=== PATIENT | female | born 1935 | race Caucasian/White ===

== ENCOUNTER 2018-10-21 13:45 | Outpatient (RCR) | payer MEDICARE, MEDICAID, SELFPAY ==
[2018-09-29 11:06] VITALS: BP 146/56; PULSE 71; RESP 18; TEMP 36.6; BMI 25.4
--- NOTE | 2018-09-29 16:26 | PN.PCM_ITS ---
Type of Wound Chief Complaint: Recurrent venous stasis ulcerations of the left medial leg History of Wound: This is a 79-year-old white female who is having history of ulcerations in the left lower extremity in the past, and is currently under treatment at the [facility] wound center for recurrent ulcerat ion on the distal left medial calf. She is currently under the care of Dr. Michele Vegas. This is her 23THrd week of treatment. Current management includes the use of double layer 15-20 mmHg compression stockings prescribed by Dr. Birmingham last month, and collagen hydrogel which is applied every day topically. She ambulates with a cane. She sleeps on a flat mattress at night. She saw Dr. Birmingham last month for evaluation and he instructed her to lay flat with her legs slightly elevated at least 3 times per day. - Physical Exam Vital Signs Temp Pulse Resp BP 97.8 F 71 18 146/56 H 09/29/18 11:06 09/29/18 11:06 09/29/18 11:06 09/29/18 11:06 Wound Measurements and Assessment WC - Nurse 1 - General Ulcer Measurement Start: 09/29/18 11:06 Freq: Status: Active Protocol: Activity Type Activity Date Activity User E-Sign Co-Sign Detail Recorded Client Recorded Date Recorded By Document 09/29/18 11:06 AN [id number] 09/29/18 11:35 AN 09/29/18 11:06 Wound Center Nurse 1 [Ulcer Assessment] #3 RIGHT LOWER LEG CLUSTER -Current Size (cm) - Length 1.7 -Current Size (cm) - Width 1.8 -Current Size (cm) - Depth 0.1 -Total Square Cm 3.06 -Date of Last Picture (Recall this 09/29/18 field) -Photo Taken Yes -Classification - Thickness Full Thickness without Exposed Support Structure -Exudate Amt Medium -Exudate Type Serosanguineous -Wound Margin Distinct, Outline Attached -Granulation Amt Small (1-33%) -Granulation Quality Red -Necrosis Amt Large (67-100%) -Necrotic Tissue Type Adherent Slough -Structure Exposed None/Limited to Skin Breakdown -Texture (Kristen-wound Skin Appearance) Assessed -Moisture (Kristen-wound Skin Appearance Assessed ) -Color (Kristen-wound Skin Appearance) Assessed Erythema -Temperature (Kristen-wound Skin Hot Appearance) -Tenderness on Palpation (Kristen-wound Yes Skin Appearance) -Ulcer Cleansing Rinsed/ Irrigated with Saline -Foul Odor after Cleansing No -Anesthetic Used 4% Lidocaine Solution 5% Lidocaine Gel [Edema Assessment] -Right Calf (cm) 35.6 -Right Ankle (cm) 19.5 -Left Calf (cm) 35.5 -Left Ankle (cm) 20.0 CLINT - Nurse 2 - General Ulcer CM Notes Start: 09/29/18 11:06 Freq: Status: Active Protocol: Activity Type Activity Date Activity User E-Sign Co-Sign Detail Recorded Client Recorded Date Recorded By Document 09/29/18 12:23 [id number] 09/29/18 12:30 09/29/18 12:23 Wound Center Nurse 2 [Procedure/Treatment] #3 RIGHT LOWER LEG CLUSTER -Time 12:27 -Correct Patient Yes -Correct Side, Site, Position Yes -Correct Procedure Yes -Procedure Performed Yes -Type of Procedure Debridement -Clinical Debridement Subcutaneous -Post Debridement Size (cm) - Length 2 -Post Debridement Size (cm) - Width 2 -Post Debridement Size (cm) - Depth 0.4 -Total Square Cm 4 -Wound/Ulcer Outcome Not Healed -Ulcer Cleansing Rinsed/ Irrigated with Saline -Foul Odor after Cleansing No -Bioengineered Tissue No -Bleeding Controlled with Pressure -Offloading No -Treatment Response Procedure Tolerated Well [See Physician Procedure note for Specifics] Pain Scale: 0-10 Numeric [Pain] -Is Patient Pain Free? Yes Debridement Note Post-Debridement Measurements/Treatment CLINT - Nurse 2 - General Ulcer CM Notes Start: 09/29/18 11:06 Freq: Status: Active Protocol: Activity Type Activity Date Activity User E-Sign Co-Sign Detail Recorded Client Recorded Date Recorded By Document 09/29/18 12:23 [id number] 09/29/18 12:30 09/29/18 12:23 Wound Center Nurse 2 #3 RIGHT LOWER LEG CLUSTER -Time 12:27 -Correct Patient Yes -Correct Side, Site, Position Yes -Correct Procedure Yes -Procedure Performed Yes -Type of Procedure Debridement -Clinical Debridement Subcutaneous -Post Debridement Size (cm) - Length 2 -Post Debridement Size (cm) - Width 2 -Post Debridement Size (cm) - Depth 0.4 -Total Square Cm 4 -Wound/Ulcer Outcome Not Healed -Ulcer Cleansing Rinsed/ Irrigated with Saline -Foul Odor after Cleansing No -Bioengineered Tissue No -Bleeding Controlled with Pressure -Offloading No -Treatment Response Procedure Tolerated Well Pain Scale: 0-10 Numeric Is Patient Pain Free? Yes Assessment/Plan Assessment: This is a 79-year-old female with a long-standing history of chronic venous insufficiency, varicose veins with inflammation and ulceration, postphlebitic syndrome with inflammation and ulceration,smoking history, and back pain. This is the 26th week of treatment at the wound center. Plan: 11/03/2014 the wound is healed today discussion ensued about the importance of wearing compression avoid long periods of standing or sitting and to frequently replace the hose so that it does have the proper compression
--- NOTE | 2018-10-02 14:02 | HP.PCM_ITS ---
(1) Ulcer of right lower leg Status: Chronic Code(s): L97.919 - Non-pressure chronic ulcer of unspecified part of right lower leg with unspecified severity (2) Former smoker, stopped smoking in distant past Status: Chronic Code(s): Z87.891 - Personal history of nicotine dependence (3) History of CHF (congestive heart failure) Status: Chronic Code(s): Z86.79 - Personal history of other diseases of the circulatory system History of Present Illness Date of Service: 09/29/18 Chief Complaint: Recurrent venous stasis ulcerations of the left medial leg History of Wound: 83 year old female presents with ulcer of right anterior lower leg. She noticed it several weeks ago. She is unsure how she obtained it. The home health nurse noticed it and referred her to the wound center. She has not been doing much for wound care. She has previously come to the wound center for other wounds. Will order venous and arterial studies. Wound care will consist of Santyl. She denies any fever or chills. Past Medical History Past Medical History: Chronic Problems Ulcer of right lower leg (Chronic) Former smoker, stopped smoking in distant past (Chronic) History of CHF (congestive heart failure) (Chronic) Surgical History: noncontributory Allergies/Adverse Reactions: Allergies No Known Allergies Allergy (Verified 07/28/13 11:07) Home Medications: Ambulatory Orders Medication Instructions Recorded Albuterol Inhaler [Ventolin Hfa] 2 puff INHALATION Q6H PRN PRN 04/28/14 Aspirin [Aspirin, Baby] 81 mg PO DAILY@0800 04/28/14 Fluticasone/Salmeterol [Advair INHALATION Q2H PRN PRN 04/28/14 100/50 Diskus] Furosemide [Lasix] 40 mg PO DAILY 04/28/14 Hydrocodone/Acetaminophen 1 each PO 4X/DAY PRN PRN 04/28/14 [Hydrocodon-Acetaminoph 7.5-325] Losartan Potassium [Cozaar] 100 mg PO DAILY 04/28/14 Metoprolol(XL)Succ [Toprol Xl 50 mg PO DAILY 04/28/14 (Beta Jennifer)] [place]-3 Fatty Acids/Fish Oil [Fish 1 each PO DAILY 04/28/14 Oil 1,000 mg Capsule] Spironolactone [Aldactone] 50 mg PO DAILY 04/28/14 traMADol [Ultram (G)] 50 mg PO Q12H PRN PRN 04/28/14 Duloxetine Hcl [Cymbalta] 20 mg PO DAILY 06/02/14 Smoking Status: Former smoker Review of Systems Constitutional: Denies: Anorexia, Chills, Fever Eyes: Denies: Pain, Vision Change HEENT: Reports: Difficulty Hearing Cardiovascular: Denies: Chest Pain, Palpitations Respiratory: Reports: - - history of asthma Gastrointestinal: Denies: Diarrhea, Nausea, Vomiting Genitourinary: Denies: Dysuria, Hematuria Musculoskeletal: Reports: Joint Pain Skin: Reports: Wounds - right anterior lord Neurological: Denies: Balance problems Psychiatric: Denies: Anxiety, Depression Endocrine: Denies: Heat/ Cold Intolerance, Polydipsia, Polyuria Hematologic/ Lymphatic: Denies: Easy Bruising, Easy Bleeding - Physical Exam Vital Signs Temp Pulse Resp BP 97.8 F 71 18 146/56 H 09/29/18 11:06 09/29/18 11:06 09/29/18 11:06 09/29/18 11:06 General: Alert, Oriented x3, Cooperative HEENT: Atraumatic, PERRLA Oral: Moist Mucosa Lungs: Clear to auscultation, Normal air movement Cardiovascular: Regular rate, Regular Rhythm Extremities: Capillary Refill Less than 3 Seconds, Diminished Peripheral Pulses, Edema - +1 edema bilateral lower extremities Skin: Ulcer/ Wound - Right anterior lower leg Musculoskeletal: No Tenderness to Palpation of Joints or Extremities Neurological: Neuro grossly intact Psych/Mental Status: Normal Affect, Appropriate Debridement Note Post-Debridement Measurements/Treatment WC - Nurse 2 - General Ulcer CM Notes Start: 09/29/18 11:06 Freq: Status: Active Protocol: Activity Type Activity Date Activity User E-Sign Co-Sign Detail Recorded Client Recorded Date Recorded By Document 09/29/18 12:23 [email or web address] [id number] 09/29/18 12:30 [email or web address] 09/29/18 12:23 Wound Center Nurse 2 #3 RIGHT LOWER LEG CLUSTER -Time 12:27 -Correct Patient Yes -Correct Side, Site, Position Yes -Correct Procedure Yes -Procedure Performed Yes -Type of Procedure Debridement -Clinical Debridement Subcutaneous -Post Debridement Size (cm) - Length 2 -Post Debridement Size (cm) - Width 2 -Post Debridement Size (cm) - Depth 0.4 -Total Square Cm 4 -Wound/Ulcer Outcome Not Healed -Ulcer Cleansing Rinsed/ Irrigated with Saline -Foul Odor after Cleansing No -Bioengineered Tissue No -Bleeding Controlled with Pressure -Offloading No -Treatment Response Procedure Tolerated Well Pain Scale: 0-10 Numeric Is Patient Pain Free? Yes Wound debrided: Right anterior lower leg Laterality: Right Type of Debridement: Excisional debridement Anesthesia Used: 5% Lidocaine Gel Depth: Down to and including healthy tissue, in the subcutaneous layer Percentage of wound debrided: 100 Instrument Used: 5mm curette Tissue Removed: Subcutaneous tissue and slough Severity: Fat Layer Exposed Amount of bleeding with debridement: Mild Bleeding Controlled with: Pressure Patient tolerated procedure well Assessment/Plan Assessment: 1. Ulcer of right lower leg. 2. Former smoker. 3. History of CHF Plan: Patient was seen and evaluated in the wound center today. She has had an ulcer on her right anterior lower leg for several weeks, that she is unsure how she obtained it. She has not been doing anything for wound care. Her home health nurse saw it and referred her to the wound center. Her wound was debrided today and she tolerated that well. We will order Santyl to be applied daily, nickel thickness and covered with adaptic. We will obtain venous and arterial studies. She states that she has not had any for many years. We will have her apply a single layer tubigrip for compression until we obtain the vascular study results. She will follow up in one week. She was instructed to call if she has any problems, questions, or concerns. Code Visit Office Visits / Consults: [id number] OV L4 Est - 25 111xxx-113xx: [id number] Brina subq tissue 20 sq cm/<
[2018-10-06 13:58] VITALS: BP 129/64; PULSE 67; RESP 18; TEMP 36.2; BMI 25.4
--- NOTE | 2018-10-06 16:56 | PN.PCM_ITS ---
(1) Ulcer of right lower leg Status: Chronic Current Visit: Yes Code(s): L97.919 - Non-pressure chronic ulcer of unspecified part of right lower leg with unspecified severity (2) Former smoker, stopped smoking in distant past Status: Chronic Current Visit: Yes Code(s): Z87.891 - Personal history of nicotine dependence (3) History of CHF (congestive heart failure) Status: Chronic Current Visit: Yes Code(s): Z86.79 - Personal history of other diseases of the circulatory system Type of Wound Date of Service: 10/06/18 Chief Complaint: Recurrent venous stasis ulcerations of the left medial leg History of Wound: 83 year old female presents with ulcer of right anterior lower leg. She noticed it several weeks ago. She is unsure how she obtained it. The home health nurse noticed it and referred her to the wound center. She has not been doing much for wound care. She has previously come to the wound center for other wounds. Will order venous and arterial studies. Wound care will consist of Santyl. She denies any fever or chills. Progress of Wound: Improved. - Physical Exam Vital Signs Temp Pulse Resp BP 97.1 F L 67 18 129/64 H 10/06/18 13:58 10/06/18 13:58 10/06/18 13:58 10/06/18 13:58 General: Alert, Oriented x3, Cooperative HEENT: Atraumatic Oral: Moist Mucosa Lungs: Normal air movement Cardiovascular: Regular rate Extremities: Capillary Refill Less than 3 Seconds, Diminished Peripheral Pulses Skin: Ulcer/ Wound - right anterior lower leg, two opened areas that are measured as a cluster Wound Measurements and Assessment WC - Nurse 1 - General Ulcer Measurement Start: 09/29/18 11:06 Freq: Status: Active Protocol: Activity Type Activity Date Activity User E-Sign Co-Sign Detail Recorded Client Recorded Date Recorded By Document 10/06/18 13:58 AN [id number] 10/06/18 14:12 AN 10/06/18 13:58 Wound Center Nurse 1 [Ulcer Assessment] #3 RIGHT LOWER LEG CLUSTER -Current Size (cm) - Length 1.8 -Current Size (cm) - Width 1.8 -Current Size (cm) - Depth 0.1 -Total Square Cm 3.24 -Photo Taken No -Classification - Thickness Full Thickness without Exposed Support Structure -Exudate Type Yellow/Green -Wound Margin Distinct, Outline Attached -Granulation Amt Small (1-33%) -Granulation Quality Red -Slough/Fibrin Yes -Necrosis Amt Large (67-100%) -Necrotic Tissue Type Adherent Slough -Structure Exposed None/Limited to Skin Breakdown -Texture (Kristen-wound Skin Appearance) Assessed Localized Edema Rash -Moisture (Kristen-wound Skin Appearance Assessed ) -Color (Kristen-wound Skin Appearance) Assessed Erythema -Temperature (Kristen-wound Skin Hot Appearance) -Tenderness on Palpation (Kristen-wound Yes Skin Appearance) -Ulcer Cleansing Rinsed/ Irrigated with Saline -Foul Odor after Cleansing No -Anesthetic Used 4% Lidocaine Solution [Edema Assessment] -Right Calf (cm) 35 -Right Ankle (cm) 19 - Nurse 2 - General Ulcer CM Notes Start: 09/29/18 11:06 Freq: Status: Active Protocol: Activity Type Activity Date Activity User E-Sign Co-Sign Detail Recorded Client Recorded Date Recorded By Document 10/06/18 14:32 [id number] 10/06/18 14:34 10/06/18 14:32 Wound Center Nurse 2 [Procedure/Treatment] #3 RIGHT LOWER LEG CLUSTER -Time 14:33 -Correct Patient Yes -Correct Side, Site, Position Yes -Correct Procedure Yes -Procedure Performed Yes -Type of Procedure Debridement -Clinical Debridement Subcutaneous -Post Debridement Size (cm) - Length 1.4 -Post Debridement Size (cm) - Width 1.8 -Post Debridement Size (cm) - Depth 0.3 -Total Square Cm 2.52 -Wound/Ulcer Outcome Not Healed -Ulcer Cleansing Rinsed/ Irrigated with Saline -Foul Odor after Cleansing No -Bioengineered Tissue No -Bleeding Controlled with Pressure -Offloading No -Treatment Response Procedure Tolerated Well [See Physician Procedure note for Specifics] Pain Scale: 0-10 Numeric [Pain] -Is Patient Pain Free? Yes Musculoskeletal: No Tenderness to Palpation of Joints or Extremities Neurological: Neuro grossly intact Psych/Mental Status: Normal Affect, Appropriate Debridement Note Post-Debridement Measurements/Treatment - Nurse 2 - General Ulcer CM Notes Start: 09/29/18 11:06 Freq: Status: Active Protocol: Activity Type Activity Date Activity User E-Sign Co-Sign Detail Recorded Client Recorded Date Recorded By Document 09/29/18 12:23 [id number] 09/29/18 12:30 Document 10/06/18 14:32 [id number] 10/06/18 14:34 09/29/18 10/06/18 12:23 14:32 Wound Center Nurse 2 #3 RIGHT LOWER LEG CLUSTER -Time 12:27 14:33 -Correct Patient Yes Yes -Correct Side, Site, Position Yes Yes -Correct Procedure Yes Yes -Procedure Performed Yes Yes -Type of Procedure Debridement Debridement -Clinical Debridement Subcutaneous Subcutaneous -Post Debridement Size (cm) - Length 2 1.4 -Post Debridement Size (cm) - Width 2 1.8 -Post Debridement Size (cm) - Depth 0.4 0.3 -Total Square Cm 4 2.52 -Wound/Ulcer Outcome Not Healed Not Healed -Ulcer Cleansing Rinsed/ Rinsed/ Irrigated with Irrigated with Saline Saline -Foul Odor after Cleansing No No -Bioengineered Tissue No No -Bleeding Controlled with Pressure Pressure -Offloading No No -Treatment Response Procedure Procedure Tolerated Well Tolerated Well Pain Scale: 0-10 Numeric Is Patient Pain Free? Yes Yes Wound debrided: Right anterior lower leg Laterality: Right Type of Debridement: Excisional debridement Anesthesia Used: 5% Lidocaine Gel Depth: Down to and including healthy tissue, in the subcutaneous layer Percentage of wound debrided: 100 Instrument Used: 5mm curette Tissue Removed: Subcutaneous tissue and slough Severity: Fat Layer Exposed Amount of bleeding with debridement: Mild Bleeding Controlled with: Pressure Patient tolerated procedure well Assessment/Plan Active Problems Ulcer of right lower leg (Chronic) Former smoker, stopped smoking in distant past (Chronic) History of CHF (congestive heart failure) (Chronic) Assessment: 1. Ulcer of right lower leg. 2. Former smoker. 3. History of CH F Plan: Patient was seen and evaluated in the wound center today. She has had an ulcer on her right anterior lower leg for several weeks, that she is unsure how she obtained it. She has not been doing anything for wound care. Her home health nurse saw it and referred her to the wound center. Her wound was debrided today and she tolerated that well. She will continue the Santyl to be applied daily, nickel thickness and covered with adaptic. The venous and arterial studies are scheduled for next week. She states that she has not had any for many years. We will have her apply a single layer tubigrip for compression until we obtain the vascular study results. She will follow up in one week. She was instructed to call if she has any problems, questions, or concerns. Code Visit 111xxx-113xx: [id number] Brina subq tissue 20 sq cm/<
[2018-10-21 14:05] VITALS: BP 137/79; PULSE 72; RESP 18; TEMP 36.6; BMI 25.4
--- NOTE | 2018-10-21 16:25 | PCM.WC.PN ---
(1) Ulcer of right lower leg Status: Chronic Current Visit: Yes Code(s): L97.919 - Non-pressure chronic ulcer of unspecified part of right lower leg with unspecified severity (2) Former smoker, stopped smoking in distant past Status: Chronic Current Visit: Yes Code(s): Z87.891 - Personal history of nicotine dependence (3) History of CHF (congestive heart failure) Status: Chronic Current Visit: Yes Code(s): Z86.79 - Personal history of other diseases of the circulatory system Type of Wound Date of Service: 10/21/18 Chief Complaint: Recurrent venous stasis ulcerations of the left medial leg History of Wound: 83 year old female presents with ulcer of right anterior lower leg. She noticed it several weeks ago. She is unsure how she obtained it. The home health nurse noticed it and referred her to the wound center. She has not been doing much for wound care. She has previously come to the wound center for other wounds. Venous and arterial studies were ordered, patient was ill and missed them, will reschedule. Wound care will consist of aquacel silver. Will stop the Santyl. She denies any fever or chills. Progress of Wound: Improved. - Physical Exam Vital Signs Temp Pulse Resp BP 97.8 F 72 18 137/79 H 10/21/18 14:05 10/21/18 14:05 10/21/18 14:05 10/21/18 14:05 General: Alert, Oriented x3 HEENT: Atraumatic Oral: Moist Mucosa Lungs: Normal air movement Cardiovascular: Regular rate Extremities: Capillary Refill Less than 3 Seconds, Diminished Peripheral Pulses, Edema - +1 Skin: Ulcer/ Wound - Left lower leg has two openings. Wound bed improved with Santyl Wound Measurements and Assessment WC - Nurse 1 - General Ulcer Measurement Start: 09/29/18 11:06 Freq: Status: Active Protocol: Activity Type Activity Date Activity User E-Sign Co-Sign Detail Recorded Client Recorded Date Recorded By Document 10/21/18 14:05 [email or web address] [id number] 10/21/18 14:12 RB 10/21/18 14:05 Wound Center Nurse 1 [Ulcer Assessment] #3 RIGHT LOWER LEG CLUSTER -Combined with other wound No -Current Size (cm) - Length 1.3 -Current Size (cm) - Width 1.7 -Current Size (cm) - Depth 0.2 -Total Square Cm 2.21 -Tunneling No -Undermining/Tunneling No -Circular Undermining No -Exudate Amt Small -Exudate Type Serosanguineous -Wound Margin Distinct, Outline Attached -Granulation Amt Small (1-33%) -Granulation Quality Red -Slough/Fibrin Yes -Necrosis Amt Large (67-100%) -Necrotic Tissue Type Adherent Slough -Structure Exposed N/A -Texture (Kristen-wound Skin Appearance) Assessed -Moisture (Kristen-wound Skin Appearance Assessed ) -Color (Kristen-wound Skin Appearance) Assessed Hemosiderin Staining -Temperature (Kristen-wound Skin No Abnormality Appearance) (Pt Warm) -Tenderness on Palpation (Kristen-wound No Skin Appearance) -Ulcer Cleansing Rinsed/ Irrigated with Saline -Foul Odor after Cleansing No -Anesthetic Used 4% Lidocaine Solution [Edema Assessment] -Lower Limb Edema Present Yes -Right Calf (cm) 19 -Right Ankle (cm) 35 Musculoskeletal: No Tenderness to Palpation of Joints or Extremities Neurological: Neuro grossly intact Psych/Mental Status: Normal Affect, Appropriate Debridement Note Post-Debridement Measurements/Treatment WC - Nurse 2 - General Ulcer CM Notes Start: 09/29/18 11:06 Freq: Status: Active Protocol: Activity Type Activity Date Activity User E-Sign Co-Sign Detail Recorded Client Recorded Date Recorded By Document 09/29/18 12:23 [id number] 09/29/18 12:30 Document 10/06/18 14:32 [id number] 10/06/18 14:34 09/29/18 10/06/18 12:23 14:32 Wound Center Nurse 2 #3 RIGHT LOWER LEG CLUSTER -Time 12:27 14:33 -Correct Patient Yes Yes -Correct Side, Site, Position Yes Yes -Correct Procedure Yes Yes -Procedure Performed Yes Yes -Type of Procedure Debridement Debridement -Clinical Debridement Subcutaneous Subcutaneous -Post Debridement Size (cm) - Length 2 1.4 -Post Debridement Size (cm) - Width 2 1.8 -Post Debridement Size (cm) - Depth 0.4 0.3 -Total Square Cm 4 2.52 -Wound/Ulcer Outcome Not Healed Not Healed -Ulcer Cleansing Rinsed/ Rinsed/ Irrigated with Irrigated with Saline Saline -Foul Odor after Cleansing No No -Bioengineered Tissue No No -Bleeding Controlled with Pressure Pressure -Offloading No No -Treatment Response Procedure Procedure Tolerated Well Tolerated Well Pain Scale: 0-10 Numeric Is Patient Pain Free? Yes Yes Wound debrided: Left lower anterior leg Laterality: Left Type of Debridement: Excisional debridement Anesthesia Used: 5% Lidocaine Gel Depth: Down to and including healthy tissue, in the subcutaneous layer Percentage of wound debrided: 100 Instrument Used: 5mm curette Tissue Removed: Subcutaneous tissue and slough Severity: Fat Layer Exposed Amount of bleeding with debridement: Mild Bleeding Controlled with: Pressure Patient tolerated procedure well Assessment/Plan Active Problems Ulcer of right lower leg (Chronic) Former smoker, stopped smoking in distant past (Chronic) History of CHF (congestive heart failure) (Chronic) Assessment: 1. Ulcer of right lower leg. 2. Former smoker. 3. History of CHF Plan: Patient was seen and evaluated in the wound center today. She has had an ulcer on her right anterior lower leg for several weeks, that she is unsure how she obtained it. She has not been doing anything for wound care. Her home health nurse saw it and referred her to the wound center. Her wound was debrided today and she tolerated that well. We will stop the Santyl and start daily aquacel silver dressing changes. The venous and arterial studies need to be rescheduled due to her not having them last week due to her being ill. She previously said she hasn't had any vascular studies in years, but now is stating she recently had some. The only study we can find is a doppler of her lower extremity to rule out DVT about a year ago. We will reschedule her vascular studies. We will have her apply a single layer tubigrip for compression until we obtain the vascular study results. She will follow up in one week. She was instructed to call if she has any problems, questions, or concerns. Code Visit 111xxx-113xx: [id number] Brina subq tissue 20 sq cm/<
== END 2018-10-24 23:59 ==
LOC: WC 13:45
PROVIDERS: Family Provider Family Medicine; PCP Family Medicine; Visit Provider Nurse Practitioner Family
DX: I87.8 Other specified disorders of veins (principal); L97.812 Non-pressure chronic ulcer of other part of right lower leg with fat layer exposed; I50.9 Heart failure, unspecified; Z87.891 Personal history of nicotine dependence
CPT/HCPCS: 11042; 87070; 87075; 87077; 87186; 87205; 99213; G0463

== ENCOUNTER 2018-11-10 11:15 | Outpatient (RCR) | payer MEDICARE, MEDICAID, SELFPAY ==
[2018-10-25 01:16] VITALS: BP 137/79; PULSE 72; RESP 18; TEMP 36.6
[2018-11-04 13:27] VITALS: BP 144/69; PULSE 72; RESP 16; TEMP 36.4; BMI 25.4
--- NOTE | 2018-11-04 14:03 | PN.PCM_ITS ---
(1) Ulcer of right lower leg Status: Chronic Current Visit: Yes Code(s): L97.919 - Non-pressure chronic ulcer of unspecified part of right lower leg with unspecified severity (2) Former smoker, stopped smoking in distant past Status: Chronic Current Visit: Yes Code(s): Z87.891 - Personal history of nicotine dependence (3) History of CHF (congestive heart failure) Status: Chronic Current Visit: Yes Code(s): Z86.79 - Personal history of other diseases of the circulatory system (4) Edema of right lower extremity Status: Chronic Current Visit: Yes Code(s): R60.0 - Localized edema Type of Wound Date of Service: 11/04/18 Chief Complaint: Recurrent venous stasis ulcerations of the left medial leg History of Wound: 83 year old female presents with ulcer of right anterior lower leg. She noticed it several weeks ago. She is unsure how she obtained it. The home health nurse noticed it and referred her to the wound center. She has not been doing much for wound care. She has previously come to the wound center for other wounds. Venous and arterial studies were ordered, patient was ill and missed them, will reschedule. Wound care will consist of aquacel silver. Will stop the Santyl. She denies any fever or chills. She has increased redness and swelling of right lower leg that is warm to touch on 11/04/18, will restart her Levaquin. Progress of Wound: No improvement. Increased redness and edema of right lower extremity today. - Physical Exam Vital Signs Temp Pulse Resp BP 97.6 F L 72 16 144/69 H 11/04/18 13:27 11/04/18 13:27 11/04/18 13:27 11/04/18 13:27 General: Alert, Oriented x3 HEENT: Atraumatic Oral: Moist Mucosa Lungs: Normal air movement Cardiovascular: Regular rate Extremities: Capillary Refill Less than 3 Seconds, Diminished Peripheral Pulses, Edema Skin: Ulcer/ Wound - Right lower anterior leg ulcer. Today she has increase in edema and redness and warm of her right lower leg Wound Measurements and Assessment WC - Nurse 1 - General Ulcer Measurement Start: 11/04/18 13:27 Freq: Status: Active Protocol: Activity Type Activity Date Activity User E-Sign Co-Sign Detail Recorded Client Recorded Date Recorded By Document 11/04/18 13:27 [id number] 11/04/18 13:31 11/04/18 13:27 Wound Center Nurse 1 [Ulcer Assessment] #3 RIGHT LOWER LEG CLUSTER -Combined with other wound No -Current Size (cm) - Length 1.0 -Current Size (cm) - Width 1.6 -Current Size (cm) - Depth 0.1 -Total Square Cm 1.60 -Photo Taken No -Epithelialization None Present -Tunneling No -Undermining/Tunneling No -Circular Undermining No -Exudate Amt Small -Exudate Type Serosanguineous -Wound Margin Flat & Intact -Granulation Amt Large (67-100%) -Granulation Quality [place] -Slough/Fibrin Yes -Necrosis Amt Small (1-33%) -Necrotic Tissue Type Adherent Slough -Structure Exposed N/A -Texture (Kristen-wound Skin Appearance) Assessed Localized Edema Rash -Moisture (Kristen-wound Skin Appearance Assessed ) Dry/Scaly -Color (Kristen-wound Skin Appearance) Assessed -Temperature (Kristen-wound Skin No Abnormality Appearance) (Pt Warm) -Tenderness on Palpation (Kristen-wound No Skin Appearance) -Ulcer Cleansing Rinsed/ Irrigated with Saline -Foul Odor after Cleansing No -Anesthetic Used 4% Lidocaine Solution [Edema Assessment] -Lower Limb Edema Present Yes -Right Calf (cm) 35.0 -Right Ankle (cm) 19.2 - Nurse 2 - General Ulcer CM Notes Start: 11/04/18 13:27 Freq: Status: Active Protocol: Activity Type Activity Date Activity User E-Sign Co-Sign Detail Recorded Client Recorded Date Recorded By Document 11/04/18 13:47 [id number] 11/04/18 13:51 11/04/18 13:47 Wound Center Nurse 2 [Procedure/Treatment] #3 RIGHT LOWER LEG CLUSTER -Time 13:50 -Correct Patient Yes -Correct Side, Site, Position Yes -Correct Procedure Yes -Procedure Performed Yes -Type of Procedure Debridement -Clinical Debridement Subcutaneous -Post Debridement Size (cm) - Length 1.0 -Post Debridement Size (cm) - Width 1.7 -Post Debridement Size (cm) - Depth 0.2 -Total Square Cm 1.70 -Wound/Ulcer Outcome Not Healed -Ulcer Cleansing Rinsed/ Irrigated with Saline -Foul Odor after Cleansing No -Bioengineered Tissue No -Bleeding Controlled with Pressure -Offloading No -Treatment Response Procedure Tolerated Well [See Physician Procedure note for Specifics] Pain Scale: 0-10 Numeric [Pain] -Is Patient Pain Free? Yes Musculoskeletal: Tenderness Neurological: Neuro grossly intact Psych/Mental Status: Normal Affect, Appropriate Debridement Note Post-Debridement Measurements/Treatment WC - Nurse 2 - General Ulcer CM Notes Start: 11/04/18 13:27 Freq: Status: Active Protocol: Activity Type Activity Date Activity User E-Sign Co-Sign Detail Recorded Client Recorded Date Recorded By Document 11/04/18 13:47 [id number] 11/04/18 13:51 11/04/18 13:47 Wound Center Nurse 2 #3 RIGHT LOWER LEG CLUSTER -Time 13:50 -Correct Patient Yes -Correct Side, Site, Position Yes -Correct Procedure Yes -Procedure Performed Yes -Type of Procedure Debridement -Clinical Debridement Subcutaneous -Post Debridement Size (cm) - Length 1.0 -Post Debridement Size (cm) - Width 1.7 -Post Debridement Size (cm) - Depth 0.2 -Total Square Cm 1.70 -Wound/Ulcer Outcome Not Healed -Ulcer Cleansing Rinsed/ Irrigated with Saline -Foul Odor after Cleansing No -Bioengineered Tissue No -Bleeding Controlled with Pressure -Offloading No -Treatment Response Procedure Tolerated Well Pain Scale: 0-10 Numeric Is Patient Pain Free? Yes Wound debrided: Right anterior lower leg Type of Debridement: Excisional debridement Anesthesia Used: 5% Lidocaine Gel Depth: Down to and including healthy tissue, in the subcutaneous layer Percentage of wound debrided: 100 Instrument Used: 5mm curette Tissue Removed: Subcutaneous tissue and slough Severity: Fat Layer Exposed Amount of bleeding with debridement: Mild Bleeding Controlled with: Compression and gauze Patient tolerated procedure well Assessment/Plan Active Problems Ulcer of right lower leg (Chronic) Former smoker, stopped smoking in distant past (Chronic) History of CHF (congestive heart failure) (Chronic) Edema of right lower extremity (Chronic) Assessment: 1. Ulcer of right lower leg. 2. Former smoker. 3. History of CHF Plan: Patient was seen and evaluated in the wound center today. She has had an ulcer on her right anterior lower leg for several weeks, that she is unsure how she obtained it. She has not been doing anything for wound care. Her home health nurse saw it and referred her to the wound center. Her wound was debrided today and she tolerated that well. We stopped the Santyl and started daily aquacel silver dressing changes. The venous and arterial studies are now scheduled for next week. She previously said she hasn't had any vascular studies in years, but now is stating she recently had some. The only study we can find is a doppler of her lower extremity to rule out DVT about a year ago. We will have her apply a single layer tubigrip for compression until we obtain the vascular study results. She will follow up in one week. She was instructed to call if she has any problems, questions, or concerns. Today I will restart her on Levaquin due to the amount of redness, warm and swelling of the right lower leg. She has [facility] who comes out to her house once a week to check on her. Wound cultures from 10/06 grew Staphylococcus simulans and Staphylococcus epidermidis. This was sensitive to levaquin which we will restart. Follow up in one week. Code Visit [id number]: 27179 Brina subq tissue 20 sq cm/<
[2018-11-10 12:25] VITALS: BP 155/67; PULSE 77; RESP 18; TEMP 36.9; BMI 25.4
--- NOTE | 2018-11-10 12:34 | WC ---
pt states she thpught her arterial studies was after her dr beltran today instead of before . Family memeber calling to [facility] to reschedule SYLVIA studies
--- NOTE | 2018-11-10 13:10 | PCM.WC.PN ---
(1) Ulcer of right lower leg Status: Chronic Code(s): L97.919 - Non-pressure chronic ulcer of unspecified part of right lower leg with unspecified severity (2) Former smoker, stopped smoking in distant past Status: Chronic Code(s): Z87.891 - Personal history of nicotine dependence (3) History of CHF (congestive heart failure) Status: Chronic Code(s): Z86.79 - Personal history of other diseases of the circulatory system (4) Edema of right lower extremity Status: Chronic Code(s): R60.0 - Localized edema Type of Wound Date of Service: 11/10/18 Chief Complaint: Recurrent venous stasis ulcerations of the left medial leg History of Wound: 83 year old female presents with ulcer of right anterior lower leg. She noticed it several weeks ago. She is unsure how she obtained it. The home health nurse noticed it and referred her to the wound center. She has not been doing much for wound care. She has previously come to the wound center for other wounds. Venous and arterial studies were ordered, patient was ill and missed them, will reschedule. Wound care will consist of aquacel silver. Will stop the Santyl. She denies any fever or chills. She has increased redness and swelling of right lower leg that is warm to touch on 11/04/18, will restart her Levaquin. Progress of Wound: Mild improvement. There is a decrease in the redness of her left right lower extremity. She continues to have some mild edema. She is not wearing her compression. - Physical Exam Vital Signs Temp Pulse Resp BP 98.4 F 77 18 155/67 H 11/10/18 12:25 11/10/18 12:25 11/10/18 12:25 11/10/18 12:25 General: Alert, Oriented x3 HEENT: Atraumatic Oral: Moist Mucosa Lungs: Normal air movement Cardiovascular: Regular rate Extremities: Capillary Refill Less than 3 Seconds, Diminished Peripheral Pulses, Edema - Some +1 dependent edema Skin: Ulcer/ Wound - Ulcer of right anterior lower leg Wound Measurements and Assessment WC - Nurse 1 - General Ulcer Measurement Start: 11/04/18 13:27 Freq: Status: Active Protocol: Activity Type Activity Date Activity User E-Sign Co-Sign Detail Recorded Client Recorded Date Recorded By Document 11/10/18 12:25 RB [id number] 11/10/18 12:33 11/10/18 12:25 Wound Center Nurse 1 [Ulcer Assessment] #3 RIGHT LOWER LEG CLUSTER -Combined with other wound No -Current Size (cm) - Length 1.5 -Current Size (cm) - Width 1.6 -Current Size (cm) - Depth 0.1 -Total Square Cm 2.40 -Tunneling No -Undermining/Tunneling No -Circular Undermining No -Exudate Amt Small -Exudate Type Serosanguineous -Wound Margin Distinct, Outline Attached -Granulation Amt Large (67-100%) -Granulation Quality [place] Red -Necrosis Amt Small (1-33%) -Necrotic Tissue Type Adherent Slough -Structure Exposed N/A -Texture (Kristen-wound Skin Appearance) Assessed -Moisture (Kristen-wound Skin Appearance Assessed ) -Color (Kristen-wound Skin Appearance) Hemosiderin Staining -Temperature (Kristen-wound Skin No Abnormality Appearance) (Pt Warm) -Tenderness on Palpation (Kristen-wound No Skin Appearance) -Ulcer Cleansing Wound Cleanser -Foul Odor after Cleansing No -Anesthetic Used 5% Lidocaine Gel [Edema Assessment] -Lower Limb Edema Present Yes -Right Calf (cm) 34.5 -Right Ankle (cm) 19.5 WC - Nurse 2 - General Ulcer CM Notes Start: 11/04/18 13:27 Freq: Status: Active Protocol: Activity Type Activity Date Activity User E-Sign Co-Sign Detail Recorded Client Recorded Date Recorded By Document 11/10/18 13:08 [id number] 11/10/18 13:09 11/10/18 13:08 Wound Center Nurse 2 [Procedure/Treatment] #3 RIGHT LOWER LEG CLUSTER -Time 13:08 -Correct Patient Yes -Correct Side, Site, Position Yes -Correct Procedure Yes -Procedure Performed Yes -Type of Procedure Debridement -Clinical Debridement Subcutaneous -Post Debridement Size (cm) - Length 0.7 -Post Debridement Size (cm) - Width 2 -Post Debridement Size (cm) - Depth 0.3 -Total Square Cm 1.4 -Wound/Ulcer Outcome Not Healed -Ulcer Cleansing Rinsed/ Irrigated with Saline -Foul Odor after Cleansing No -Bioengineered Tissue No -Bleeding Controlled with Pressure -Offloading No -Treatment Response Procedure Tolerated Well [See Physician Procedure note for Specifics] Pain Scale: 0-10 Numeric [Pain] -Is Patient Pain Free? Yes Musculoskeletal: No Tenderness to Palpation of Joints or Extremities Neurological: Neuro grossly intact Psych/Mental Status: Normal Affect, Appropriate Debridement Note Post-Debridement Measurements/Treatment - Nurse 2 - General Ulcer CM Notes Start: 11/04/18 13:27 Freq: Status: Active Protocol: Activity Type Activity Date Activity User E-Sign Co-Sign Detail Recorded Client Recorded Date Recorded By Document 11/04/18 13:47 [id number] 11/04/18 13:51 Document 11/10/18 13:08 [id number] 11/10/18 13:09 11/04/18 11/10/18 13:47 13:08 Wound Center Nurse 2 #3 RIGHT LOWER LEG CLUSTER -Time 13:50 13:08 -Correct Patient Yes Yes -Correct Side, Site, Position Yes Yes -Correct Procedure Yes Yes -Procedure Performed Yes Yes -Type of Procedure Debridement Debridement -Clinical Debridement Subcutaneous Subcutaneous -Post Debridement Size (cm) - Length 1.0 0.7 -Post Debridement Size (cm) - Width 1.7 2 -Post Debridement Size (cm) - Depth 0.2 0.3 -Total Square Cm 1.70 1.4 -Wound/Ulcer Outcome Not Healed Not Healed -Ulcer Cleansing Rinsed/ Rinsed/ Irrigated with Irrigated with Saline Saline -Foul Odor after Cleansing No No -Bioengineered Tissue No No -Bleeding Controlled with Pressure Pressure -Offloading No No -Treatment Response Procedure Procedure Tolerated Well Tolerated Well Pain Scale: 0-10 Numeric Is Patient Pain Free? Yes Yes Wound debrided: Right anterior lower leg ulcer Type of Debridement: Excisional debridement Anesthesia Used: 5% Lidocaine Gel Depth: Down to and including healthy tissue, in the subcutaneous layer Percentage of wound debrided: 100 Instrument Used: 5mm curette Tissue Removed: Subcutaneous tissue and slough Severity: Fat Layer Exposed Amount of bleeding with debridement: Mild Bleeding Controlled with: Pressure Patient tolerated procedure well Assessment/Plan Assessment: 1. Ulcer of right lower leg. 2. Former smoker. 3. History of CHF Plan: Patient was seen and evaluated in the wound center today. She has had an ulcer on her right anterior lower leg for several weeks, that she is unsure how she obtained it. She has not been doing anything for wound care. Her home health nurse saw it and referred her to the wound center. Her wound was debrided today and she tolerated that well. We stopped the Santyl and started daily aquacel silver dressing changes. The venous and arterial studies have needed to be rescheduled again for next week because she missed her appointment from today. She previously said she hasn't had any vascular studies in years, but now is stating she recently had some. The only study we can find is a doppler of her lower extremity to rule out DVT about a year ago. We will have her apply a single layer tubigrip for compression until we obtain the vascular study results. She will follow up in one week. She was instructed to call if she has any problems, questions, or concerns. The redness and warmth on her right lower leg has resolved. She will continue to take her Levaquin.. She has [facility] who comes out to her house once a week to check on her. Wound cultures from 10/06 grew Staphylococcus simulans and Staphylococcus epidermidis. This was sensitive to levaquin which we will restart. Follow up in 2 weeks due to may be out of town. Hopefully she will finally have had her vascular studies which had to be rescheduled multiple times. Code Visit 111xxx-[id number]: 36504 Brina subq tissue 20 sq cm/<
== END 2018-11-23 23:59 ==
LOC: WC 11:15
PROVIDERS: Family Provider Family Medicine; PCP Family Medicine; Visit Provider Nurse Practitioner Family
DX: I87.8 Other specified disorders of veins (principal); L97.812 Non-pressure chronic ulcer of other part of right lower leg with fat layer exposed; Z87.891 Personal history of nicotine dependence; I50.9 Heart failure, unspecified; R60.0 Localized edema; M79.89 Other specified soft tissue disorders
CPT/HCPCS: 11042

== ENCOUNTER 2018-11-25 12:50 | Outpatient (RCR) | payer MEDICARE, MEDICAID, SELFPAY ==
[2018-11-24 00:51] VITALS: BP 155/67; PULSE 77; RESP 18; TEMP 36.9
--- NOTE | 2018-11-25 12:56 | VDLE_ITS ---
Reason For Study: PVD RIGHT LEFT CFV is compressible, spontaneous, phasic, CFV is compressible, spontaneous, phasic, competent and demonstrates normal competent, and demonstrates normal augmentation. augmentation. FV is compressible, spontaneous, phasic, FV is compressible, spontaneous, phasic, competent and demonstrates normal competent and demonstrates normal augmentation. augmentation. POP V is compressible, spontaneous, phasic, POP V is compressible, spontaneous, phasic, competent and demonstrates normal competent and demonstrates normal augmentation. augmentation. T/P Trunk is compressible. T/P Trunk is compressible. PTV is compressible. PTV is compressible. RT PerV is compressible. LT PerV is compressible. SFJ is competent. SFJ is competent. GSV above knee is competent. GSV above knee is competent. GSV below knee is INCOMPETENT for greater GSV below knee is INCOMPETENT for greater than 0.5 seconds and measures 0.13 x 0.17 cm. than 0.5 seconds and measures 0.22 x 0.23 cm. SSV is INCOMPETENT for greater than 0.5 SSV is competent. seconds and measures 0.21 x 0.21 cm. Procedure Exam performed in department. Interpretation Summary Deep veins of the lower extremities are bilaterally patent and compressible segmentally. There is no evidence of deep vein thrombosis on either side. Valvular competence appears intact within the proximal deep venous systems bilaterally. The greater saphenous veins appear bilaterally patent and compressible segmentally. Sapheno-femoral junctions are bilaterally competent . The right greater saphenous vein appears competent above the knee. The right greater saphenous vein appears incompetent below the knee. The left greater saphenous vein appears competent above the knee. The left greater saphenous vein appears incompetent below the knee. The right small saphenous vein is patent and incompetent. The left small saphenous vein is patent and competent. Ordering Physician: Vanita Grove Referring Physician: Mary Pretty Performed By: Rosa Maria Lyons RVT
--- NOTE | 2018-11-25 12:56 | ART_ITS ---
Reason For Study: PVD Procedure A bilateral lower extremity continuous wave Doppler with analog waveform analysis,segmental pressures,and ankle brachial indexes without exercise. Left Segmental Pressures Left brachial= 142mmHg. Left posterior tibial artery = 151mmHg. Left dorsalis pedis artery = 143mmHg. Left digit = 102 mmHg. The left dorsalis pedis waveforms are triphasic. The left posterior tibial artery waveforms are triphasic. Right Segmental Pressures Right brachial= 130mmHg. Right posterior tibial artery = 143mmHg. Right dorsalis pedis artery = 143mmHg. Right digit = 95 mmHg. The right dorsalis pedis waveforms are triphasic. The right posterior tibial artery waveforms are triphasic. Indices The right ankle brachial index by the dorsalis pedis is 1.01. The right ankle brachial index by the posterior tibial artery is 1.01. The right digital-brachial index is 0.67. The left ankle brachial index by the dorsalis pedis is 1.01. The left ankle brachial index by the posterior tibial artery is 1.06. The left digital-brachial index is 0.72. Interpretation Summary Triphasic Doppler waveforms are noted at ankle level bilaterally. Pulse-volume recording waveform amplitudes are diminished at digital level bilaterally. Resting ankle-brachial indices are normal bilaterally. The right digital-brachial index is mildly diminished. The left digital-brachial index is low-normal. Arterial flow appears to be relatively normal to ankle level bilaterally. 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 Arterial flow at digital level on the left appears normal. Ordering Physician: Vanita Grove Referring Physician: Mary Pretty Performed By: Rosa Maria Lyons RVT
[2018-11-25 14:55] VITALS: BP 129/78; PULSE 80; RESP 16; TEMP 36.8; BMI 25.4
--- NOTE | 2018-11-25 17:14 | PN.PCM_ITS ---
(1) Ulcer of right lower leg Status: Chronic Current Visit: Yes Code(s): L97.919 - Non-pressure chronic ulcer of unspecified part of right lower leg with unspecified severity (2) Edema of right lower extremity Status: Chronic Current Visit: Yes Code(s): R60.0 - Localized edema (3) Former smoker, stopped smoking in distant past Status: Chronic Current Visit: Yes Code(s): Z87.891 - Personal history of nicotine dependence (4) History of CHF (congestive heart failure) Status: Chronic Current Visit: Yes Code(s): Z86.79 - Personal history of other diseases of the circulatory system Type of Wound Date of Service: 11/25/18 Chief Complaint: Recurrent venous stasis ulcerations of the left medial leg History of Wound: 83 year old female presents with ulcer of right anterior lower leg. She noticed it several weeks ago. She is unsure how she obtained it. The home health nurse noticed it and referred her to the wound center. She has not been doing much for wound care. She has previously come to the wound center for other wounds. Venous and arterial studies were ordered, patient was ill and missed them, will reschedule. Wound care will consist of aquacel silver. Will stop the Santyl. She denies any fever or chills. She has increased redness and swelling of right lower leg that is warm to touch on 11/04/18, will restart her Levaquin. Progress of Wound: Healed. Continues to have some dependent edema of right lower extremity. - Physical Exam Vital Signs Temp Pulse Resp BP 98.2 F 80 16 129/78 H 11/25/18 14:55 11/25/18 14:55 11/25/18 14:55 11/25/18 14:55 General: Alert, Oriented x3 HEENT: Atraumatic Oral: Moist Mucosa Lungs: Normal air movement Cardiovascular: Regular rate Extremities: Capillary Refill Less than 3 Seconds, Diminished Peripheral Pulses, Edema Skin: Ulcer/ Wound - Right lower leg ulcer healed Wound Measurements and Assessment WC - Nurse 1 - General Ulcer Measurement Start: 11/25/18 14:55 Freq: Status: Active Protocol: Activity Type Activity Date Activity User E-Sign Co-Sign Detail Recorded Client Recorded Date Recorded By Document 11/25/18 14:55 BS [id number] 11/25/18 14:57 BS 11/25/18 14:55 Wound Center Nurse 1 [Ulcer Assessment] #3 RIGHT LOWER LEG CLUSTER -Combined with other wound No -Current Size (cm) - Length 0.1 -Current Size (cm) - Width 0.1 -Current Size (cm) - Depth 0.1 -Total Square Cm 0.01 -Date of Last Picture (Recall this 11/25/18 field) -Photo Taken Yes -Epithelialization Small 1-33% -Texture (Kristen-wound Skin Appearance) No Abnormality, Assessed -Moisture (Kristen-wound Skin Appearance No Abnormality, ) Assessed -Color (Kristen-wound Skin Appearance) Assessed, Hemosiderin Staining -Temperature (Kristen-wound Skin No Abnormality Appearance) (Pt Warm) -Tenderness on Palpation (Kristen-wound No Skin Appearance) [Edema Assessment] -Lower Limb Edema Present No WC - Nurse 2 - General Ulcer CM Notes Start: 11/25/18 14:55 Freq: Status: Active Protocol: Activity Type Activity Date Activity User E-Sign Co-Sign Detail Recorded Client Recorded Date Recorded By Document 11/25/18 15:39 [id number] 11/25/18 15:40 11/25/18 15:39 Wound Center Nurse 2 [Procedure/Treatment] #3 RIGHT LOWER LEG CLUSTER -Correct Patient No -Correct Side, Site, Position No -Correct Procedure No -Procedure Performed No -Post Debridement Size (cm) - Length 0 -Post Debridement Size (cm) - Width 0 -Post Debridement Size (cm) - Depth 0 -Total Square Cm 0 -Wound/Ulcer Outcome Healed- Epithelialized [See Physician Procedure note for Specifics] Pain Scale: 0-10 Numeric [Pain] -Is Patient Pain Free? Yes Musculoskeletal: No Tenderness to Palpation of Joints or Extremities Neurological: Neuro grossly intact Psych/Mental Status: Normal Affect, Appropriate Debridement Note Post-Debridement Measurements/Treatment WC - Nurse 2 - General Ulcer CM Notes Start: 11/25/18 14:55 Freq: Status: Active Protocol: Activity Type Activity Date Activity User E-Sign Co-Sign Detail Recorded Client Recorded Date Recorded By Document 11/25/18 15:39 [id number] 11/25/18 15:40 11/25/18 15:39 Wound Center Nurse 2 #3 RIGHT LOWER LEG CLUSTER -Correct Patient No -Correct Side, Site, Position No -Correct Procedure No -Procedure Performed No -Post Debridement Size (cm) - Length 0 -Post Debridement Size (cm) - Width 0 -Post Debridement Size (cm) - Depth 0 -Total Square Cm 0 -Wound/Ulcer Outcome Healed- Epithelialized Pain Scale: 0-10 Numeric Is Patient Pain Free? Yes No debridement was completed today Assessment/Plan Active Problems Ulcer of right lower leg (Chronic) Former smoker, stopped smoking in distant past (Chronic) History of CHF (congestive heart failure) (Chronic) Edema of right lower extremity (Chronic) Assessment: 1. Ulcer of right lower leg. 2. Former smoker. 3. History of CHF Plan: Patient was seen and evaluated in the wound center today. She has had an ulcer on her right anterior lower leg for several weeks, that she is unsure how she obtained it but is healed today. The venous and arterial studies were done today. The vepis duplex study showed the right and left greater saphenous veins appear incompetent below the knee. The right small saphenous vein is patent and incompetent. The arterial study showed the right ENRIQUE=1.01, the left ENRIQUE=1.06. 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 Wound cultures from 10/06 grew Staphylococcus simulans and Staphylococcus epidermidis. This was sensitive to levaquin which we restarted. She is healed today. We recommend a referral to Dr. Daniel, Vascular surgery for her right lower leg. She is not sure she wants to see another doctor at this time. Encouraged her to wear her compression on her lower extremities, especially the right side where she gets all of her edema. She w ill be discharged today from the wound center. Follow up as needed. Code Visit Office Visits / Consults: [id number] OV L3 Est
== END 2018-12-24 23:59 ==
LOC: WC 12:50
PROVIDERS: Family Provider Family Medicine; PCP Family Medicine; Referring Provider Nurse Practitioner Family; Visit Provider Nurse Practitioner Family
DX: I73.9 Peripheral vascular disease, unspecified (principal); L97.812 Non-pressure chronic ulcer of other part of right lower leg with fat layer exposed; Z87.891 Personal history of nicotine dependence; I50.9 Heart failure, unspecified; R60.0 Localized edema
CPT/HCPCS: 93923; 93970; 99212; G0463